=== PATIENT | female | born 1960 | race Caucasian/White ===

== ENCOUNTER 2017-09-25 07:02 | Emergency (ER) | payer BC ==
[~2017-09-25] VITALS: Ht 152.4 cm; Wt 50.5 kg
[~2017-09-25 07:02] MED LIST: FEOSOL325 MG PO; HYDROCODON-ACE1 EAC7 PO; KEFLEX500 MG PO; TOBREX5 ML RIGHT EYE
[2017-09-25] MEDS ORDERED: TYLENOL EXTRA500 MG PO (09:05)
[2017-09-25] MEDS ORDERED: ZOFRAN4 MG PO (09:05)
[2017-09-25 09:31] VITALS: BP 148/89
== END 2017-09-25 09:40 | disposition home or self-care (01) ==
LOC: EME 07:02
DX: S06.0X0A Concussion without loss of consciousness, initial encounter (principal); W22.8XXA Striking against or struck by other objects, initial encounter; I10 Essential (primary) hypertension; F17.200 Nicotine dependence, unspecified, uncomplicated
CPT/HCPCS: 70450; 99281; 99284; J2765